=== PATIENT | male | born 1980 | race Two or more races ===

== ENCOUNTER 2019-05-30 21:22 | Inpatient (IN) | payer SELFPAY ==
[2019-05-30] MEDS ORDERED: NORMAL SALINE 1000 ML 2,000 ML IV ONE (22:47)
[2019-05-30] MEDS ORDERED: ONDANSETRON HCL INJ/PF 4 MG/2 ML SDV IV ONE (22:53)
[2019-05-30 23:35] LABS: ABSOLUTE BASOPHILS # (AUTO) 0.1 10^3/uL (0.0-0.2); ABSOLUTE LYMPHOCYTES (AUTO) 1.4 10^3/uL (0.5-4.7); BASOPHILS % (AUTO) 0.6 % (0-2); EOSINOPHILS % (AUTO) 0.1 % (0-6); HEMATOCRIT 47.9 % (37.9-51.0); HEMOGLOBIN 16.2 g/dL (13.5-17.0); LYMPHOCYTES % (AUTO) 9.8 % (13-45); MEAN CORPUSCULAR HEMOGLOBIN 30.6 pg (27.0-33.4); MEAN CORPUSCULAR HGB CONC 33.9 g/dL (32.0-36.0); MEAN CORPUSCULAR VOLUME 90 fl (80-97); MONOCYTES % (AUTO) 6.6 % (3-13); PLATELET COUNT 300 10^3/uL (150-450); RED BLOOD COUNT 5.31 10^6/uL (4.35-5.55); RED CELL DISTRIBUTION WIDTH 12.7 % (11.5-14.0); SEGMENTED NEUTROPHILS % (AUTO) 82.9 % (42-78); TOTAL CELLS COUNTED % (AUTO) 100 %; WHITE BLOOD COUNT 14.5 10^3/uL (4.0-10.5)
[2019-05-30 23:56] LABS: ALBUMIN 5.6 g/dL (3.5-5.0); ALKALINE PHOSPHATASE 72 U/L (38-126); ANION GAP 19 (5-19); ASPARTATE AMINO TRANSFERASE 75 U/L (17-59); BILIRUBIN,DIRECT 0.2 mg/dL (0.0-0.4); BILIRUBIN,TOTAL 0.6 mg/dL (0.2-1.3); BLOOD UREA NITROGEN 29 mg/dL (7-20); CALCIUM 10.5 mg/dL (8.4-10.2); CARBON DIOXIDE 24 mmol/L (22-30); CHLORIDE 98 mmol/L (98-107); CREATINE KINASE 365 U/L (55-170); GLUCOSE 125 mg/dL (75-110); POTASSIUM 4.8 mmol/L (3.6-5.0); TOTAL PROTEIN 9.3 g/dL (6.3-8.2)
[2019-05-31 00:42] LABS: APPEARANCE,URINE CLOUDY; BILIRUBIN,URINE SMALL (NEGATIVE); COLOR,URINE AMBER; GLUCOSE, URINE NEGATIVE (NEGATIVE); KETONES,URINE TRACE mg/dL (NEGATIVE); LEUKOCYTE ESTERASE,URINE TRACE (NEGATIVE); NITRITE,URINE NEGATIVE (NEGATIVE); PROTEIN,URINE 100 mg/dL (NEGATIVE); URINE SPECIFIC GRAVITY 1.023
--- NOTE | 2019-05-31 02:30 | ER Document Report ---
ED General - General Chief Complaint: Pain All Over Stated Complaint: CRAMPING Time Seen by Provider: 05/30/19 22:47 Notes: Patient is a 38-year-old male presents to the emergency department for generalized muscle spasm. Patient is complaining of generalized body aches and over 10 episodes of nonbloody vomiting. 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 State he has generalized muscle cramps in bilateral legs, bilateral arms, abdomen. Patient has a past medical history of hypertension but is unsure of what medication he takes for treatment. TRAVEL OUTSIDE OF THE [place] IN LAST 30 DAYS: No - Related Data Allergies/Adverse Reactions: No Known Allergies Allergy (Verified 05/30/19 21:31) Past Medical History - General Information source: Patient, Relative - Social History Smoking Status: Current Every Day Smoker Chew tobacco use (# tins/day): Yes Frequency of alcohol use: 'MAINLY WEEKENDS" Family History: Reviewed & Not Pertinent Patient has suicidal ideation: No Patient has homicidal ideation: No - Past Medical History Cardiac Medical History: Reports: Hx Hypertension Renal/ Medical History: Denies: Hx Peritoneal Dialysis - Immunizations Immunizations up to date: Yes Hx Diphtheria, Pertussis, Tetanus Vaccination: Yes Review of Systems - Review of Systems Constitutional: See HPI. denies: Fever EENT: No symptoms reported Cardiovascular: denies: Chest pain, Palpitations Respiratory: No symptoms reported Gastrointestinal: See HPI Genitourinary: No symptoms reported Male Genitourinary: No symptoms reported Musculoskeletal: See HPI Skin: No symptoms reported Hematologic/Lymphatic: No symptoms reported Neurological/Psychological: See HPI Physical Exam - Vital signs Vitals: Temp Pulse Resp BP Pulse Ox 98.1 F 117 H 20 120/78 95 05/30/19 21:37 05/30/19 21:37 05/30/19 21:37 05/30/19 21:37 05/30/19 21:37 - Notes Notes: GENERAL: Alert, initially rolling around on the bed screaming out in pain. HEAD: Normocephalic, atraumatic. EYES: Pupils equal, round, and reactive to light. Extraocular movements intact. ENT: Oral mucosa moist, tongue midline. NECK: Full range of motion. Supple. Trachea midline. LUNGS: Clear to auscultation bilaterally, no wheezes, rales, or rhonchi. No respiratory distress. HEART: Tachycardic rate and rhythm. No murmur ABDOMEN: Soft, non-tender. Non-distended. Bowel sounds present in all 4 quadrants. EXTREMITIES: Moves all 4 extremities spontaneously. No edema, normal radial and dorsalis pedis pulses bilaterally. No cyanosis. 5 out of 5 strength noticed all 4 extremities BACK: no cervical, thoracic, lumbar midline tenderness. No saddle anesthesia, n ormal distal neurovascular exam. NEUROLOGICAL: Alert and oriented x3. Normal speech. cranial nerves II through XII grossly intact PSYCH: Normal affect, normal mood. SKIN: Warm, flushed, dry, normal turgor. Course - Re-evaluation Re-evalutation: 05/31/19 02:29 [place] [id number] used for translation to speak with the patient. Laboratory 05/30/19 05/30/19 05/31/19 23:20 23:20 00:15 WBC 14.5 H RBC 5.31 Hgb 16.2 Hct 47.9 MCV 90 MCH 30.6 MCHC 33.9 RDW 12.7 Plt Count 300 Seg Neutrophils % 82.9 H Lymphocytes % 9.8 L Monocytes % 6.6 Eosinophils % 0.1 Basophils % 0.6 Absolute Neutrophils 12.0 H Absolute Lymphocytes 1.4 Absolute Monocytes 1.0 Absolute Eosinophils 0.0 Absolute Basophils 0.1 Sodium 141.3 Potassium 4.8 Chloride 98 Carbon Dioxide 24 Anion Gap 19 BUN 29 H Creatinine 3.18 H Est GFR ( Amer) 27 L Est GFR (Non-Af Amer) 22 L Glucose 125 H Calcium 10.5 H Total Bilirubin 0.6 Direct Bilirubin 0.2 Neonat Total Bilirubin Not Reportable Neonat Direct Bilirubin Not Reportable Neonat Indirect Bili Not Reportable AST 75 H ALT 90 Alkaline Phosphatase 72 Creatine Kinase 365 H Total Protein 9.3 H Albumin 5.6 H Urine Color TOMMY Urine Appearance CLOUDY Urine pH 5.0 Ur Specific [place] 1.023 Urine Protein 100 H Urine Glucose (UA) NEGATIVE Urine Ketones TRACE H Urine Blood NEGATIVE Urine Nitrite NEGATIVE Urine Bilirubin SMALL H Urine Urobilinogen 4.0 H Ur Leukocyte Esterase TRACE H Urine WBC (Auto) 1 Urine RBC (Auto) 3 U Hyaline Cast (Auto) 88 Squamous Epi Cells Auto 4 Urine Mucus (Auto) OCC Urine Ascorbic Acid 20 H Patient's labs do show a acute kidney injury, creatinine 3.18 with a GFR of 22. Patient's urinalysis shows proteinuria with 88 hyaline casts. I have discussed this case with my attending Dr. Pizano who is recommending admitting the patient for acute kidney injury and heat exposure. Patient has received 2 L of normal saline solution in the emergency department. I have discussed this case with hospitalist Dr. Chávez who will accept the patient for acute kidney injury. - Vital Signs Vital signs: Temp Pulse Resp BP Pulse Ox 98.1 F 117 H 20 120/78 95 05/30/19 21:37 05/30/19 21:37 05/30/19 21:37 05/30/19 21:37 05/30/19 21:37 - Laboratory Result Diagrams: 05/30/19 23:20 05/30/19 23:20 Laboratory results interpreted by me: 05/30/19 05/30/19 05/31/19 23:20 23:20 00:15 WBC 14.5 H Seg Neutrophils % 82.9 H Lymphocytes % 9.8 L Absolute Neutrophils 12.0 H BUN 29 H Creatinine 3.18 H Est GFR ( Amer) 27 L Est GFR (Non-Af Amer) 22 L Glucose 125 H Calcium 10.5 H AST 75 H Creatine Kinase 365 H Total Protein 9.3 H Albumin 5.6 H Urine Protein 100 H Urine Ketones TRACE H Urine Bilirubin SMALL H Urine Urobilinogen 4.0 H Ur Leukocyte Esterase TRACE H Urine Ascorbic Acid 20 H Discharge - Discharge Clinical Impression: Acute kidney injury Heat exposure Qualifiers: Encounter type: initial encounter Qualified Code(s): T67.9XXA - Effect of heat and light, unspecified, initial encounter Condition: Stable Disposition: ADMITTED INPATIENT Admitting Provider: Kyler (Hospitalist) Unit Admitted: Medical Floor
[2019-05-31] MEDS ORDERED: NORMAL SALINE 1000 ML 1,000 ML IV PRN (02:42)
--- NOTE | 2019-05-31 03:00 | PDOC H&P ---
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 This afternoon he began to have a lot of cramping and body aches decreased urine output and so he came to the hospital. He was found to have elevated creatinine. His past medical history is significant only for hypertension and he takes a blood pressure medication but does not know what it is. He is gotten 2 bags of IV fluid so far but has not put out any urine yet. He is being admitted for treatment of his acute kidney injury. Past Medical History Cardiac Medical History: Reports: Hypertension Social History Smoking Status: Current Every Day Smoker Family History Family History: Reviewed & Not Pertinent Parental Family History Reviewed: Yes - Hypertension Children Family History Reviewed: Yes - No medical problems Sibling(s) Family History Reviewed.: Unknown Medication/Allergy Home Medications: Hydrocodone/Acetaminophen [Gaffney 5-325 mg Tablet] 1 tab PO Q6H PRN #10 tablet 03/27/16 Allergies/Adverse Reactions: No Known Allergies Allergy (Verified 05/30/19 21:31) Review of Systems All systems: reviewed and no additional remarkable complaints except as stated - All systems were reviewed and were negative except as noted in the HPI. He does not speak Taiwanese and his daughter interpreted Physical Exam Vital Signs: Temp Pulse Resp BP Pulse Ox 98.1 F 117 H 20 120/78 95 05/30/19 21:37 05/30/19 21:37 05/30/19 21:37 05/30/19 21:37 05/30/19 21:37 Intake & Output 05/29/19 05/30/19 05/31/19 06:59 06:59 06:59 Intake Total 1999 Balance 1999 Weight 88.8 kg General appearance: PRESENT: no acute distress, cooperative, obese Head exam: PRESENT: atraumatic, normocephalic Eye exam: PRESENT: EOMI, PERRLA. ABSENT: conjunctival injection, nystagmus, sc leral icterus Ear exam: PRESENT: normal external ear exam Mouth exam: PRESENT: dry mucosa, neck supple Throat exam: ABSENT: post pharyngeal erythema Neck exam: PRESENT: full ROM. ABSENT: carotid bruit, JVD, lymphadenopathy, meningismus, tenderness, thyromegaly Respiratory exam: PRESENT: clear to auscultation tanya, symmetrical, unlabored. ABSENT: accessory muscle use, chest wall tenderness, crackles, prolonged expiratory phas, rhonchi, tachypnea, wheezes Cardiovascular exam: PRESENT: RRR, +S1, +S2 Pulses: PRESENT: normal carotid pulses Vascular exam: PRESENT: normal capillary refill GI/Abdominal exam: PRESENT: normal bowel sounds, soft. ABSENT: distended, guarding, rebound, tenderness Extremities exam: ABSENT: clubbing, pedal edema Musculoskeletal exam: PRESENT: ambulatory, normal inspection. ABSENT: deformity Neurological exam: PRESENT: alert, awake, oriented to person, oriented to place, oriented to situation, CN II-XII grossly intact. ABSENT: motor sensory deficit Psychiatric exam: PRESENT: appropriate affect, normal mood Skin exam: PRESENT: dry, warm, other - His face and neck are sunburned Results Laboratory Results: 05/30/19 23:20 05/30/19 23:20 05/30/19 05/30/19 05/31/19 23:20 23:20 00:15 WBC 14.5 H RBC 5.31 Hgb 16.2 Hct 47.9 MCV 90 MCH 30.6 MCHC 33.9 RDW 12.7 Plt Count 300 Seg Neutrophils % 82.9 H Lymphocytes % 9.8 L Monocytes % 6.6 Eosinophils % 0.1 Basophils % 0.6 Absolute Neutrophils 12.0 H Absolute Lymphocytes 1.4 Absolute Monocytes 1.0 Absolute Eosinophils 0.0 Absolute Basophils 0.1 Sodium 141.3 Potassium 4.8 Chloride 98 Carbon Dioxide 24 Anion Gap 19 BUN 29 H Creatinine 3.18 H Est GFR ( Amer) 27 L Est GFR (Non-Af Amer) 22 L Glucose 125 H Calcium 10.5 H Total Bilirubin 0.6 AST 75 H Alkaline Phosphatase 72 Total Protein 9.3 H Albumin 5.6 H Urine Color TOMMY Urine Appearance CLOUDY Urine pH 5.0 Ur Specific [place] 1.023 Urine Protein 100 H Urine Glucose (UA) NEGATIVE Urine Ketones TRACE H Urine Blood NEGATIVE Urine Nitrite NEGATIVE Ur Leukocyte Esterase TRACE H Urine WBC (Auto) 1 Urine RBC (Auto) 3 05/30/19 23:20 Creatine Kinase 365 H Assessment and Plan - Diagnosis (1) Acute kidney injury Is this a current diagnosis for this admission?: Yes Plan: We are going to give him some IV fluids monitor his electrolytes and urine output. He was previously healthy without any evidence of kidney disease so I anticipate that he should have a good response to therapy. If not, we can get nephrology involved. (2) Heat exposure Qualifiers: Encounter type: initial encounter Qualified Code(s): T67.9XXA - Effect of heat and light, unspecified, initial encounter Is this a current diagnosis for this admission?: Yes Plan: Condition IV fluids, will keep him cool and he should probably stay out of work for the rest of the week. - Time Time Spent with patient: 35 or more minutes - Inpatient Certification Based on my medical assessment, after consideration of the patient's comorbidities, presenting symptoms, or acuity I expect that the services needed warrant INPATIENT care.: Yes I certify that my determination is in accordance with my understanding of Medicare's requirements for reasonable and necessary INPATIENT services [42 CFR 412.3e].: Yes Medical Necessity: Need Close Monitoring Due to Risk of Patient Decompensation, Need For IV Fluids
[2019-05-31] MEDS: HEPARIN SOD (PORCINE) 5,000 UNIT/ML 1 ML VIAL SUBCUT SCH ×3 (05:36→22:21)
[2019-05-31] MEDS: NORMAL SALINE 1000 ML 1,000 ML IV PRN ×2 (08:51→17:03)
--- NOTE | 2019-05-31 11:12 | PDOC PROGRESS REPORT ---
Subjective Progress Note for:: 05/31/19 Subjective:: This is 38 years old male patient presented with chief complaint of cramping and body aches and decreased urine output. 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 His blood work shows a creatinine of 3.24 and white cell count of 14.5 and mild elevated CPK. Patient is being managed as a case of acute kidney injury due to dehydration. Reason For Visit: EFREN Physical Exam Vital Signs: Temp Pulse Resp BP Pulse Ox 98.4 F 81 18 109/57 L 98 05/31/19 07:00 05/31/19 07:00 05/31/19 07:00 05/31/19 07:00 05/31/19 07:00 Intake & Output 05/30/19 05/31/19 06/01/19 06:59 06:59 06:59 Intake Total 1999 885 Balance 1999 885 Weight 88.8 kg General appearance: PRESENT: no acute distress Head exam: PRESENT: atraumatic Eye exam: PRESENT: conjunctiva pink Mouth exam: PRESENT: moist Neck exam: ABSENT: carotid bruit, JVD, lymphadenopathy, thyromegaly Respiratory exam: PRESENT: clear to auscultation tanya. ABSENT: rales, rhonchi, w heezes Cardiovascular exam: PRESENT: RRR. ABSENT: diastolic murmur, rubs, systolic murmur GI/Abdominal exam: PRESENT: normal bowel sounds, soft. ABSENT: distended, guarding, mass, organolmegaly, rebound, tenderness Neurological exam: PRESENT: alert, awake, oriented to person, oriented to time, oriented to situation Results Laboratory Results: 05/30/19 23:20 05/30/19 23:20 05/30/19 05/30/19 05/31/19 23:20 23:20 00:15 WBC 14.5 H RBC 5.31 Hgb 16.2 Hct 47.9 MCV 90 MCH 30.6 MCHC 33.9 RDW 12.7 Plt Count 300 Seg Neutrophils % 82.9 H Lymphocytes % 9.8 L Monocytes % 6.6 Eosinophils % 0.1 Basophils % 0.6 Absolute Neutrophils 12.0 H Absolute Lymphocytes 1.4 Absolute Monocytes 1.0 Absolute Eosinophils 0.0 Absolute Basophils 0.1 Sodium 141.3 Potassium 4.8 Chloride 98 Carbon Dioxide 24 Anion Gap 19 BUN 29 H Creatinine 3.18 H Est GFR ( Amer) 27 L Est GFR (Non-Af Amer) 22 L Glucose 125 H Calcium 10.5 H Total Bilirubin 0.6 AST 75 H Alkaline Phosphatase 72 Total Protein 9.3 H Albumin 5.6 H Urine Color TOMMY Urine Appearance CLOUDY Urine pH 5.0 Ur Specific [place] 1.023 Urine Protein 100 H Urine Glucose (UA) NEGATIVE Urine Ketones TRACE H Urine Blood NEGATIVE Urine Nitrite NEGATIVE Ur Leukocyte Esterase TRACE H Urine WBC (Auto) 1 Urine RBC (Auto) 3 05/30/19 23:20 Creatine Kinase 365 H Assessment and Plan - Diagnosis (1) Acute kidney injury Is this a current diagnosis for this admission?: Yes Plan: Acute kidney injury due to prerenal azotemia. Patient is being aggressively hydrated. We will check his BMP in a.m. (2) Heat exposure Qualifiers: Encounter type: initial encounter Qualified Code(s): T67.9XXA - Effect of heat and light, unspecified, initial encounter Is this a current diagnosis for this admission?: Yes Plan: Patient strongly advised to hydrate himself as much as he says he can. And avoid excessive exposure to heat. (3) Hypertension Qualifiers: Hypertension type: essential hypertension Qualified Code(s): I10 - Essential (primary) hypertension Is this a current diagnosis for this admission?: Yes Plan: Continue home medication.
--- NOTE | 2019-05-31 14:39 | EKG REPORT ---
SEVERITY:- BORDERLINE ECG - SINUS RHYTHM BORDERLINE INFERIOR Q WAVES ST ELEV, PROBABLE NORMAL EARLY REPOL PATTERN : Confirmed by: Kaykay Victor 31-May-2019 14:38:59
[2019-06-01] MEDS: HEPARIN SOD (PORCINE) 5,000 UNIT/ML 1 ML VIAL SUBCUT SCH (06:09)
[2019-06-01 06:49] LABS: ANION GAP 8 (5-19); BLOOD UREA NITROGEN 17 mg/dL (7-20); CALCIUM 8.9 mg/dL (8.4-10.2); CARBON DIOXIDE 22 mmol/L (22-30); CHLORIDE 108 mmol/L (98-107); GLUCOSE 116 mg/dL (75-110); POTASSIUM 4.7 mmol/L (3.6-5.0)
--- NOTE | 2019-06-01 09:48 | PDOC DISCHARGE SUMMARY ---
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 This afternoon he began to have a lot of cramping and body aches decreased urine output and so he came to the hospital. He was found to have elevated creatinine. His past medical history is significant only for hypertension and he takes a blood pressure medication but does not know what it is. He is gotten 2 bags of IV fluid so far but has not put out any urine yet. He is being admitted for treatment of his acute kidney injury. Hospital Course Hospital Course: This is 38 years old male patient presented with chief complaint of cramping and body aches and decreased urine output. 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 His blood work shows a creatinine of 3.24 and white cell count of 14.5 and mild elevated CPK. Patient is being managed as a case of acute kidney injury due to dehydration. 06/01/2019: Patient seen and examined while he is resting in bed comfortably. He is awake alert oriented. He is not in pain or distress. Vital signs are within normal limits his kidney functions has been normalized with at admission his creatinine was 3.18 today it is 0.82. Patient advised to hydrate himself as much as he can and he can go back to work. Physical Exam Vital Signs: Temp Pulse Resp BP Pulse Ox 98.3 F 47 L 14 101/64 98 06/01/19 00:12 06/01/19 07:00 06/01/19 04:06 06/01/19 04:06 06/01/19 04:06 Intake & Output 05/31/19 06/01/19 06/02/19 06:59 06:59 06:59 Intake Total 1999 398 Balance 1999 3986 Weight 88.8 kg 94.8 kg General appearance: PRESENT: no acute distress, well-developed, well-nourished Head exam: PRESENT: atraumatic, normocephalic Eye exam: PRESENT: conjunctiva pink, EOMI, PERRLA. ABSENT: scleral icterus Ear exam: PRESENT: normal external ear exam Mouth exam: PRESENT: moist, tongue midline Neck exam: ABSENT: carotid bruit, JVD, lymphadenopathy, thyromegaly Respiratory exam: PRESENT: clear to auscultation tanya. ABSENT: rales, rhonchi, wheezes Cardiovascular exam: PRESENT: RRR. ABSENT: diastolic murmur, rubs, systolic murmur Pulses: PRESENT: normal dorsalis pedis pul Vascular exam: PRESENT: normal capillary refill GI/Abdominal exam: PRESENT: normal bowel sounds, soft. ABSENT: distended, guarding, mass, organolmegaly, rebound, tenderness Rectal exam: PRESENT: deferred Extremities exam: PRESENT: full ROM. ABSENT: calf tenderness, clubbing, pedal edema Neurological exam: PRESENT: alert, awake, oriented to person, oriented to place, oriented to time, oriented to situation, CN II-XII grossly intact. ABSENT: motor sensory deficit Psychiatric exam: PRESENT: appropriate affect, normal mood. ABSENT: homicidal ideation, suicidal ideation Skin exam: PRESENT: dry, intact, warm. ABSENT: cyanosis, rash Results Laboratory Results: 05/30/19 23:20 06/01/19 05:50 06/01/19 05:50 Sodium 138.4 Potassium 4.7 Chloride 108 H Carbon Dioxide 22 Anion Gap 8 BUN 17 Creatinine 0.82 Est GFR ( Amer) > 60 Est GFR (Non-Af Amer) > 60 Glucose 116 H Calcium 8.9 05/30/19 23:20 Creatine Kinase 365 H Qualifiers - * PATIENT BEING DISCHARGED WITH ANY OF THE FOLLOWING DIAGNOSIS: No Acute Heart Failure - Is this a Heart Failure Patient?: No LVEF < 40%?: No- if no continue to question #3 3. Anticoagulant therapy for permanect/persistent/paraoxysmal Afib or Aflutter: N/A
[2019-06-01 10:15] VITALS: BP 147/81
== END 2019-06-01 12:36 | disposition home or self-care (01) | DRG 684 ==
LOC: ER 21:22 → EH 05-31 02:43 → 3N 05-31 05:18
PROVIDERS: ADMIT Family Medicine; ATTEND Family Medicine
DX: N17.9 Acute kidney failure, unspecified (principal); M62.838 Other muscle spasm; I10 Essential (primary) hypertension; F17.210 Nicotine dependence, cigarettes, uncomplicated; X30.XXXA Exposure to excessive natural heat, initial encounter; Y93.E9 Activity, other interior property and clothing maintenance; Y92.098 Other place in other non-institutional residence as the place of occurrence of the external cause
CPT/HCPCS: 36415; 80048; 80053; 81001; 82550; 85025; 93005; 93010; 96361; 96374; 99284; J2405; J7030

== ENCOUNTER 2019-12-24 20:54 | Emergency (ER) | payer SELFPAY ==
--- NOTE | 2019-12-24 21:30 | EKG REPORT ---
SEVERITY:- ABNORMAL ECG - SINUS RHYTHM BORDERLINE RIGHT AXIS DEVIATION BORDERLINE INFERIOR Q WAVES ABNORMAL T, CONSIDER ISCHEMIA, INFERIOR LEADS : Confirmed by: Isra Gupta MD 24-Dec-2019 21:29:32
--- NOTE | 2019-12-24 21:59 | ER Document Report ---
ED Medical Screen (RME) - General Chief Complaint: Chest Pain Stated Complaint: CHEST PAIN Time Seen by Provider: 12/24/19 21:43 TRAVEL OUTSIDE OF THE [place] IN LAST 30 DAYS: No - HPI Notes: 12/24/19 21:56 Patient is a 39-year-old male with a history of hypertension who presents with daughter after having a syncopal episode and developing chest pain as well as left-sided numbness. This occurred at 9 PM this evening. Patient states that he feels short of breath as well like he just got done running. Family does not believe that he hit his head very hard. No history of DVT, PE, CAD. No fever, cough, vomiting/diarrhea. I did see changes in his EKG in the inferior leads. His story is concerning as well as exam. Reviewed concern with Dr. Lea. Charge nurse notified and pt given room #2. I have treated and performed a rapid initial assessment of this patient. A comprehensive ED assessment and evaluation of the patient, analysis of test results and completion of medical decision making process will be conducted by additional ED providers. PHYSICAL EXAMINATION: GENERAL: Well-appearing, well-nourished and in no acute distress. A&Ox4. Answers questions appropriately. Head: Atraumatic, no loya sign or bogginess Eyes: No raccoon eyes, PERRLA, EOMI bilaterally. Neuro: Pt does have dec sensation to the left arm/face. cranial nerves grossly intact. strength 5+/5 b/l. Pulses 2+ b/l. - Related Data Allergies/Adverse Reactions: No Known Allergies Allergy (Verified 12/24/19 21:42) Past Medical History - Past Medical History Cardiac Medical History: Reports: Hx Hypertension Renal/ Medical History: Denies: Hx Peritoneal Dialysis - Immunizations Immunizations up to date: Yes Hx Diphtheria, Pertussis, Tetanus Vaccination: Yes Physical Exam - Vital signs Vitals: Temp Pulse Resp BP Pulse Ox 98.4 F 79 20 131/73 H 95 12/24/19 21:08 12/24/19 21:08 12/24/19 21:08 12/24/19 21:08 12/24/19 21:08 Course - Vital Signs Vital signs: Temp Pulse Resp BP Pulse Ox 98.4 F 79 20 131/73 H 95 12/24/19 21:08 12/24/19 21:08 12/24/19 21:08 12/24/19 21:08 12/24/19 21:08
[2019-12-24 22:08] VITALS: BP 128/88
[2019-12-24 22:24] LABS: ABSOLUTE BASOPHILS # (AUTO) 0.1 10^3/uL (0.0-0.2); ABSOLUTE EOSINOPHILS # (AUTO) 0.3 10^3/uL (0.0-0.6); ABSOLUTE LYMPHOCYTES (AUTO) 2.1 10^3/uL (0.5-4.7); ABSOLUTE MONOCYTES (AUTO) 0.9 10^3/uL (0.1-1.4); ABSOLUTE NEUT (AUTO) 4.5 10^3/uL (1.7-8.2); BASOPHILS % (AUTO) 1.1 % (0-2); HEMATOCRIT 46.2 % (37.9-51.0); HEMOGLOBIN 16.1 g/dL (13.5-17.0); INTERNATIONAL RATION (INR) 0.92; MEAN CORPUSCULAR HEMOGLOBIN 31.1 pg (27.0-33.4); MEAN CORPUSCULAR HGB CONC 34.9 g/dL (32.0-36.0); MEAN CORPUSCULAR VOLUME 89 fl (80-97); PARTIAL THROMBOPLASTIN TIME 28.7 SEC (23.5-35.8); PLATELET COUNT 248 10^3/uL (150-450); PROTHROMBIN TIME 12.3 SEC (11.4-15.4); RED CELL DISTRIBUTION WIDTH 12.8 % (11.5-14.0); SEGMENTED NEUTROPHILS % (AUTO) 56.9 % (42-78); TOTAL CELLS COUNTED % (AUTO) 100 %; WHITE BLOOD COUNT 7.9 10^3/uL (4.0-10.5)
[2019-12-24 22:31] LABS: ALBUMIN 4.7 g/dL (3.5-5.0); ALKALINE PHOSPHATASE 66 U/L (38-126); ANION GAP 9 (5-19); ASPARTATE AMINO TRANSFERASE 36 U/L (17-59); BILIRUBIN,TOTAL 0.4 mg/dL (0.2-1.3); BLOOD UREA NITROGEN 18 mg/dL (7-20); CALCIUM 9.4 mg/dL (8.4-10.2); CARBON DIOXIDE 24 mmol/L (22-30); CHLORIDE 104 mmol/L (98-107); CREATINE KINASE 187 U/L (55-170); GLUCOSE 102 mg/dL (75-110); POTASSIUM 4.4 mmol/L (3.6-5.0); TOTAL PROTEIN 7.7 g/dL (6.3-8.2)
[2019-12-24 22:42] LABS: CREATINE KINASE MB 1.78 ng/mL (<4.55)
[2019-12-24 22:45] LABS: TROPONIN I < 0.012 ng/mL
--- NOTE | 2019-12-24 23:06 | RADIOLOGY REPORT (SQ) ---
EXAM DESCRIPTION: CT HEAD WITHOUT IV CONTRAST COMPLETED DATE/TME: 12/24/2019 21:56 CLINICAL HISTORY: 39 years, Male, syncopal episode left side numbness COMPARISON: None. TECHNIQUE: Images stored on PACS. All CT scanners at this facility use dose modulation, iterative reconstruction, and/or weight based dosing when appropriate to reduce radiation dose to as low as reasonably achievable (ALARA). [facility]: Dose Right [facility]: CareDose [facility]: Dose Right [facility]: Teradose 4D [facility]: Smart Chrends LIMITATIONS: EXAM DESCRIPTION: CLINICAL HISTORY: syncopal episode left side numbness COMPARISON: None Available TECHNIQUE: Contiguous axial CT images of the head were obtained. Coronal and sagittal reconstructions were created from the axial data. This exam was performed according to our departmental dose-optimization program, which includes automated exposure control, adjustment of the mA and/or kV according to patient size and/or use of iterative reconstruction technique. FINDINGS: There are bilateral mucous retention cysts versus polyps in the maxillary sinuses. There is no evidence of acute mass, mass effect, midline shift or hemorrhage. The ventricles and extra-axial CSF spaces are unremarkable. The brain parenchyma appears normal for the patient's age. No acute abnormalities of the bones is seen. IMPRESSION: No acute intracranial abnormality.
--- NOTE | 2019-12-24 23:10 | RADIOLOGY REPORT (SQ) ---
EXAM DESCRIPTION: [facility]: XR CHEST 1 VIEW CLINICAL HISTORY: 39 years Male; CP; COMPARISON: None. FINDINGS: Lungs are clear, with no focal infiltrate, pneumothorax, or pleural effusion. Mediastinum is within normal limits for this positioning. Bony structures are unremarkable. IMPRESSION: 1. No acute pulmonary findings.
--- NOTE | 2019-12-24 23:13 | ER Document Report ---
Entered by RAJENDRA FELTON SCRIBE 12/24/19 2214 Acting as scribe for:SILKE SEVILLA IV, MD ED General - General Chief Complaint: Chest Pain Stated Complaint: CHEST PAIN Time Seen by Provider: 12/24/19 21:43 Information source: Patient, Relative - Daughter Notes: This 39 year old male patient with a history of hypertension presents to the ED today with complaints of left-sided chest pain that occurred at 2100 this evening after a syncopal episode. Daughter at bedside states that the patient was laughing and coughing when he suddenly felt like he was choking. Daughter reports that the patient turned red/purple and that his eyes/arms locked up, stating that the patient spun around once and then fainted, falling on his right side. Daughter states that the patient lost consciousness for approximately x90 seconds and that when he came to, he stood up and complained of the chest pain. Daughter reports that the patient also complains of numbness to his bilateral upper extremities, left cheek, and back of the head. Daughter states that the left arm is worse. Patient reports dizziness and neck pain. Patient is a Tajik speaker and his daughter translated the patient's complaint. TRAVEL OUTSIDE OF THE [place] IN LAST 30 DAYS: No - Related Data Allergies/Adverse Reactions: No Known Allergies Allergy (Verified 12/24/19 21:42) Past Medical History - General Information source: Relative - Daughter - Social History Smoking Status: Unknown if Ever Smoked Cigarette use (# per day): No Chew tobacco use (# tins/day): No Smoking Education Provided: No Lives with: Family Family History: Reviewed & Not Pertinent Patient has suicidal ideation: No Patient has homicidal ideation: No - Past Medical History Cardiac Medical History: Reports: Hx Hypertension - Immunizations Immunizations up to date: Yes Hx Diphtheria, Pertussis, Tetanus Vaccination: Yes Review of Systems - Review of Systems Constitutional: No symptoms reported EENT: See HPI, Other - Numbness to left cheek and back of the head. Cardiovascular: See HPI, Chest pain, Syncope, Dizziness Respiratory: See HPI, Cough Gastrointestinal: No symptoms reported Genitourinary: No symptoms reported Male Genitourinary: No symptoms reported Musculoskeletal: Neck pain, Other - Bilateral upper extremity numbness. Skin: No symptoms reported Hematologic/Lymphatic: No symptoms reported Neurological/Psychological: See HPI, Lost consciousness -: Yes All other systems reviewed and negative Physical Exam - Vital signs Vitals: Temp Pulse Resp BP Pulse Ox 98.4 F 79 20 131/73 H 95 12/24/19 21:08 12/24/19 21:08 12/24/19 21:08 12/24/19 21:08 12/24/19 21:08 - General General appearance: Appears well, Alert In distress: None - HEENT Head: Normocephalic, Atraumatic Eyes: Normal Pupils: PERRL - Respiratory Respiratory status: No respiratory distress Chest status: Nontender Breath sounds: Normal Chest palpation: Normal - Cardiovascular Rhythm: Regular Heart sounds: Normal auscultation Murmur: No Friction rub: No Gallop: None auscultated - Abdominal Inspection: Normal Distension: No distension Bowel sounds: Normal Tenderness: Nontender - Abdomen soft Organomegaly: No organomegaly - Back Back: Normal, Nontender - Extremities General upper extremity: Normal inspection General lower extremity: Normal inspection - Neurological Neuro grossly intact: Yes - Psychological Associated symptoms: Normal affect, Normal mood - Skin Skin Temperature: Warm Skin Moisture: Dry Skin Color: Normal Course - Re-evaluation Re-evalutation: 12/25/19 02:33 Results of ED MSE discussed with patient and patient's family. All questions were answered prior to discharge. Emergency signs and symptoms, reasons to return to the emergency department discussed with patient and patient's family. - Vital Signs Vital signs: Temp Pulse Resp BP Pulse Ox 98.4 F 79 16 128/88 H 96 12/24/19 21:08 12/24/19 21:08 12/25/19 01:00 12/24/19 22:04 12/25/19 01:00 - Laboratory Result Diagrams: 12/24/19 22:00 12/24/19 22:00 Laboratory results interpreted by me: 12/24/19 22:00 Creatine Kinase 187 H - Diagnostic Test Radiology reviewed: Reports reviewed - EKG Interpretation by Me Additional EKG results interpreted by me: 12/25/19 02:34 EKG obtained on 12/24/2019 at 2059 hrs. was interpreted by this MD. Findings: Sinus rhythm, heart rate 85, normal axis, P waves preceding QRS complexes, QRS complexes appear narrow, there are no obvious visible patterns of ST segment elevation or depression present to suggest acute myocardial ischemia or infarction. Impression normal sinus rhythm with nonspecific ST segments. Discharge - Discharge Clinical Impression: Vasovagal syncope Condition: Good Disposition: HOME, SELF-CARE Additional Instructions: Return to the Emergency Department without delay if any worse. HOME CARE INSTRUCTIONS & INFORMATION: Thank you for choosing us for your medical needs. We hope you're satisfied with the care you received. After you leave, you must properly care for your problem and, at the same time, observe its progress. Any condition can change. Some illnesses can change rapidly over hours or days. If your condition worsens, return to the Emergency Department or see your physician promptly. ABOUT YOUR X-RAYS AND EKG'S: If you had an EKG or X-rays taken, they have been read by the Emergency Physician. The X-rays and EKG's will also be read by a Radiologist or [employer] within 24 hours. If discrepancies are noted, you will be notified by telephone. Please be certain the ED has a correct telephone number & address where you can be reached. Also, realize that some fractures or abnormalities do not show up on initial X-rays. If your symptoms continue, see your physician. ABOUT YOUR LABORATORY TEST: If you had laboratory tests, the results have been reviewed by the Emergency Physician. Some test results (for example cultures) may not be available for several days. You will be contacted if any test result shows you need additional treatment. Please be certain the ED has a correct telephone number and address where you can be reached. ABOUT YOUR MEDICATIONS: You will receive instructions on how to take your medicine on the prescription label you receive. Additional information may be provided by the Pharmacy. If you have questions afterwards, call the ED for clarification or further instructions. Some prescribed medications may cause drowsiness. Do not perform tasks such as driving a car or operating machinery without consulting your Pharmacist. If you feel you need a refill of pain medication, your condition will need re-evaluation. Please do not call for a refill of any medication. ABOUT YOUR SIGNATURE: Signature of this document acknowledges to followin. Understanding that you received emergency treatment and that you may be released before al medical problems are known or treated. Please be certain the ED has a correct phone number & address where you can be reached. 2. Acknowledgement that you will arrange for follow-up care as recommended. 3. Authorization for the Emergency Physician to provide information to your follow-up Physician in order to maximize your care. AT ANY TIME, IF YOUR SYMPTOMS CHANGE SIGNIFICANTLY OR WORSEN OR YOU DEVELOP NEW SYMPTOMS, RETURN TO THE EMERGENCY DEPARTMENT IMMEDIATELY FOR RE-EVALUATION. OUR GOAL IS TO PROVIDE EXCELLENT MEDICAL CARE! WE HOPE THAT WE HAVE MET YOUR EXPECTATIONS DURING YOUR EMERGENCY DEPARTMENT VISIT AND THAT YOU FEEL YOU HAVE RECEIVED EXCELLENT CARE! Vasovagal Symptoms Your symptoms seem to be due to a fall in blood pressure, caused by the interaction of your nervous system with your circulatory system. This can result in abnormally slow pulse rate, faintness, abnormal sensations, low blood pressure, difficulty with vision, or fainting (syncope). Vasovagal symptoms may be brought on by emotional distress, pain, dehydration, bleeding, or medication effects. Often, no cause can be identified. Your exam has revealed no signs of a serious problem. Usually, no further tests are required. However, if further workup has been recommended it's important that you follow up as instructed. Should you feel lightheaded or "about to faint," you should sit or lie down as quickly as possible. The episode will usually pass. Recurring symptoms will require further evaluation to determine the cause. Call the physician if you develop severe prolonged dizziness, headache, chest pain, shortness of breath, or other new symptoms. Referrals: ARMANDO SPAULDING MD [HONORARY] - Follow up as needed Print Language: Tajik I personally performed the services described in the documentation, reviewed and edited the documentation which was dictated to the scribe in my presence, and it accurately records my words and actions.
--- NOTE | 2019-12-24 23:14 | RADIOLOGY REPORT (SQ) ---
EXAM DESCRIPTION: CT CERVICAL SPINE WITHOUT IV CONTRAST COMPLETED DATE/TME: 12/24/2019 21:57 CLINICAL HISTORY: 39 years, Male, fall COMPARISON: None. TECHNIQUE: Images stored on PACS. All CT scanners at this facility use dose modulation, iterative reconstruction, and/or weight based dosing when appropriate to reduce radiation dose to as low as reasonably achievable (ALARA). [facility]: Dose Right [facility]: CareDose [facility]: Dose Right [facility]: Teradose 4D [facility]: InCab Design EXAM DESCRIPTION: CLINICAL HISTORY: fall COMPARISON: None Available TECHNIQUE: Contiguous axial images of the cervical spine were obtained without the administration of intravenous contrast followed by reconstruction images. This exam was performed according to our departmental dose-optimization program, which includes automated exposure control, adjustment of the mA and/or kV according to patient size and/or use of iterative reconstruction technique. FINDINGS: There is no acute fracture or subluxation. Prevertebral soft tissues are within normal limits. IMPRESSION: No acute fracture or subluxation
== END 2019-12-25 03:05 | disposition home or self-care (01) ==
LOC: ER 20:54
DX: R55 Syncope and collapse (principal); R07.9 Chest pain, unspecified; R05 Cough; R20.0 Anesthesia of skin; I10 Essential (primary) hypertension; R42 Dizziness and giddiness; M54.2 Cervicalgia
CPT/HCPCS: 36415; 70450; 71045; 72125; 80053; 82550; 82553; 82962; 83735; 84484; 85025; 85610; 85730; 93005; 93010; 99285

== ENCOUNTER 2020-05-07 17:51 | Emergency (ER) | payer SELFPAY ==
[2020-05-07 19:01] VITALS: BP 142/100
--- NOTE | 2020-05-07 19:56 | ER Document Report ---
ED ENT - General Chief Complaint: Sore Throat Stated Complaint: SORE THROAT,EAR PAIN Time Seen by Provider: 05/07/20 18:58 Primary Care Provider: MAYKEL TAYLOR MD [COMMUNITY BASED STAFF] - Follow up tomorrow (Call tomorrow for an outpatient follow-up appointment.) Mode of Arrival: Ambulatory Information source: Patient Notes: 39-year-old male past medical history significant for hypertension presents to the emergency room stating that he started with a sore throat yesterday started today with a cough. Denies any fevers. States he took Tylenol yesterday witho ut relief. States is able to tolerate p.o. food and fluids but is painful to swallow. He denies any recent travel. No COVID-19 exposure. No other ill contacts. Did not take any medications for symptoms today. TRAVEL OUTSIDE OF THE [place] IN LAST 30 DAYS: No - Related Data Allergies/Adverse Reactions: No Known Allergies Allergy (Verified 12/24/19 21:42) Past Medical History - General Information source: Patient - Social History Smoking Status: Current Every Day Smoker Frequency of alcohol use: Occasional Drug Abuse: None Family History: Reviewed & Not Pertinent - Past Medical History Cardiac Medical History: Reports: Hx Hypertension Renal/ Medical History: Denies: Hx Peritoneal Dialysis - Immunizations Immunizations up to date: Yes Hx Diphtheria, Pertussis, Tetanus Vaccination: Yes Review of Systems - Review of Systems Constitutional: No symptoms reported EENT: Throat pain Cardiovascular: No symptoms reported Respiratory: Cough. denies: Short of breath, Wheezing Gastrointestinal: No symptoms reported Genitourinary: No symptoms reported Male Genitourinary: No symptoms reported Musculoskeletal: No symptoms reported Skin: No symptoms reported Neurological/Psychological: No symptoms reported -: Yes All other systems reviewed and negative Physical Exam - Vital signs Vitals: Temp Pulse Resp BP Pulse Ox 99.7 F 100 18 142/100 H 95 05/07/20 18:55 05/07/20 18:55 05/07/20 18:55 05/07/20 18:55 05/07/20 18:55 - Notes Notes: VITAL SIGNS: Within normal limits. GENERAL: Mild acute distress, non-toxic appearance. HEAD: Normal with no signs of head trauma. Sinuses are not tender to palpation. EYES: PERRLA, EOMI, conjunctiva normal, no discharge. EARS: Hearing grossly intact. Bilateral tympanic membranes intact without erythema or bulging. Bilateral outer ear canals without erythema or swelling. NOSE: Clear rhinorrhea noted. Turbinates are not boggy, inflamed, or erythematous. THROAT: Oropharynx is normal. No pharyngeal erythema, no exudate. No tonsillar enlargement. NECK: Normal range of motion, no tenderness, supple, no lymphadenopathy, No adenopathy, no JVD. Negative Meningismus, Negative brudzzinski, Negative Kernig's, no Aiden's angina CHEST: Clear breath sounds bilaterally. No wheezes, rales, or rhonchi. CARDIAC: Regular rate and rhythm. S1 and S2, without murmurs, gallops, or rubs. VASCULAR: No Edema. Peripheral pulses normal and equal in all extremities. ABDOMEN: Normal and soft with no tenderness, no masses or pulsatile masses. GASTROINTESTINAL: Bowel sounds normal GENITOURINARY: Normal, No tenderness LYMPATHTIC: No lymphadenopathy noted. MUSCULOSKELETAL: Good range of motion of all major joints. Extremities without clubbing, cyanosis or edema. NEUROLOGICAL: Alert and oriented x 3. No focal sensory or strength deficits. Speech normal. Follows commands appropriately. PSYCHIATRIC: Normal Affect, judgement and mood. SKIN: Normal appearance with no rashes or lesions. Course - Re-evaluation Re-evalutation: 05/07/20 19:52 Reviewed lab results with patient. Counseled on viral illness. Patient with elevated blood pressure. Admits to history of intermittent hypertension but is not taking any medications for it he is asymptomatic with his elevated blood pressure. Denies chest pain, shortness of breath, no difficulty breathing. Counseled to use nasal spray as prescribed. Supportive therapy. Will be notified if his strep culture is positive and needs treatment. He was counseled on need to follow-up outpatient with a primary care physician for his elevated blood pressure and if not improving in 2 days. On-call physician was provided. Patient was given strict return to the emergency room guidelines. Return for any new or worsening symptoms. All questions were answered. Patient verbalized understanding and agrees with plan of care. - Vital Signs Vital signs: Temp Pulse Resp BP Pulse Ox 98.7 F 100 18 142/100 H 95 05/07/20 19:43 05/07/20 18:55 05/07/20 18:55 05/07/20 18:55 05/07/20 18:55 Discharge - Discharge Clinical Impression: Viral URI with cough Acute pharyngitis Qualifiers: Pharyngitis/tonsillitis etiology: unspecified etiology Qualified Code(s): J02.9 - Acute pharyngitis, unspecified Hypertension Qualifiers: Hypertension type: unspecified Qualified Code(s): I10 - Essential (primary) hypertension Condition: Stable Disposition: HOME, SELF-CARE Instructions: High Blood Pressure ([facility]), Sore Throat ([facility]), Upper Respiratory Illness ([facility]) Additional Instructions: Use nasal spray as prescribed. Encourage fluids. Chloraseptic throat spray it is imperative that you follow-up with a primary care physician for elevated blood pressure. Return to the emergency room for any new or worsening symptoms. Prescriptions: Fluticasone Propionate [Flonase Nasal [place] 50 Mcg/[place] 16 gm] 2 sprays NASL DAILY #1 inhaler Forms: Elevated Blood Pressure, Return to Work Referrals: MAYKEL TAYLOR MD [COMMUNITY BASED STAFF] - Follow up tomorrow (Call tomorrow for an outpatient follow-up appointment.) Print Language: Portuguese
== END 2020-05-07 20:10 | disposition home or self-care (01) ==
LOC: ER 17:51
DX: J06.9 Acute upper respiratory infection, unspecified (principal); J02.9 Acute pharyngitis, unspecified; R05 Cough; R13.10 Dysphagia, unspecified; F17.200 Nicotine dependence, unspecified, uncomplicated; I10 Essential (primary) hypertension
CPT/HCPCS: 87070; 87880; 99283